=== PATIENT | female | born 1975 | race Caucasian/White ===

== ENCOUNTER → 2019-07-02 | Outpatient (CLI) | payer BC | LOC: EDBD 08:08 → COL.RAD 08:08 | DX: N85.2 Hypertrophy of uterus (principal); N83.201 Unspecified ovarian cyst, right side; D25.9 Leiomyoma of uterus, unspecified; Z90.721 Acquired absence of ovaries, unilateral ==

== ENCOUNTER 2022-02-02 15:12 | Emergency (ER) | payer BC ==
[~2022-02-02] VITALS: Ht 167.6 cm; Wt 93.0 kg
[2022-02-02 17:32] LABS: BASO # 0.1 K/mm3 (0.0-0.2); BASO % 0.8 % (0.0-2.0); EOS # 0.1 K/mm3 (0.0-0.7); EOS % 1.8 % (0.0-4.0); GRAN # 5.5 K/mm3 (1.4-6.5); GRAN % 76.1 % (42.2-75.2); LYMPH # 1.1 K/mm3 (1.2-3.4); LYMPH % 15.2 % (20.0-51.0); MEAN CELL VOLUME 88 fl (80.0-100.0); MEAN CORPUSCULAR HGB CONC 32 g/dl (33.0-37.0); MEAN PLATELET VOLUME 10.2 fl (7.4-10.4); MONO # 0.4 K/mm3 (0.1-0.6); MONO % 5.4 % (1.7-9.3); PLATELET COUNT 448 K/mm3 (130-400); RED BLOOD COUNT 3.35 M/mm3 (4.10-5.30); REDCELL DISTRIBUTION WIDTH-CV 15.3 % (11.5-14.5)
[2022-02-02 17:34] LABS: HEMATOCRIT 29.6 % (37.0-47.0); HEMOGLOBIN 9.4 g/dl (12.5-16.0); MEAN CORPUSCULAR HEMOGLOBIN 28 pg (27-31)
[2022-02-02 17:47] LABS: BILIRUBIN,TOTAL 0.4 mg/dL (0.2-1.2); CALCIUM 9.9 mg/dL (8.4-10.2); CREATININE, serum 0.91 mg/dL (0.57-1.11); TOTAL PROTEIN 7.7 gm/dL (6.2-8.1)
[2022-02-02 18:29] VITALS: BP 123/76; PULSE 83; TEMP 98
== END 2022-02-02 18:29 | disposition home or self-care (01) ==
LOC: COL.ER 15:12
PROVIDERS: Physician Assistant
DX: N93.8 Other specified abnormal uterine and vaginal bleeding (principal); Z28.310 Unvaccinated for COVID-19; Z90.721 Acquired absence of ovaries, unilateral
CPT/HCPCS: J7030